=== PATIENT | female | born 1965 | race Caucasian/White ===

== ENCOUNTER → 2021-04-02 | Day surgery (SDC) | payer BC ==
[~2021-04-02] MED LIST: Lactated Ringers 1,000 ML IV SCH; Propofol 200 MG/20 ML SDV ONE
[2021-04-02 11:21] VITALS: BP 118/73; PULSE 74
--- NOTE | 2021-04-02 12:46 | OR ---
DATE OF OPERATION: 04/02/2021 PREOPERATIVE DIAGNOSIS: HEMATOCHEZIA. POSTOPERATIVE DIAGNOSIS: SIGMOID COLITIS. SURGEON: Patrick Fam MD PROCEDURE: FULL-LENGTH DIAGNOSTIC COLONOSCOPY WITH BIOPSIES X4. ANESTHESIA: MAC. COMPLICATIONS: None. SPECIMEN: Distal sigmoid biopsy x4. FINDINGS: 1. Full-length diagnostic colonoscopy. 2. Focal distal sigmoid colitis, likely infectious. RECOMMENDATIONS: Medical followup pending path report. INDICATIONS: The patient presented to my office for complaint of hematochezia. It has been about 5 years since her last colonoscopy. Her bleeding was improving. We elected to proceed with a diagnostic endoscopy. DESCRIPTION OF PROCEDURE: The patient was prepped and draped, placed in the left lateral decubitus position. A lubricated Olympus colonoscope was inserted and easily advanced to the cecum. Direct visualization of the ileocecal valve, appendiceal orifice, and the terminal ileum were accomplished without any issue. Upon withdrawal, the terminal ileum, cecum, ascending, and transverse colons were all completely benign throughout the left colon. The descending and proximal sigmoid areas were completely unremarkable. In the distal sigmoid colon from approximately 40 to 25 cm, the patient had diffuse and mild colitis, looked like it was resolving. There were no ulcerations or active bleeding sites. We did do 4 biopsies of phone representative areas. There were no polyps, masses, ulceration, or active bleeding sites. No signs of diverticula. The rectal vault was unremarkable. Retroflexion showed no perianal lesions. Air was suctioned. Scope removed without complication. MARK/OMAYRA /[id number]
== END ==
LOC: CC.SDS 09:02
PROVIDERS: ATTEND Family Medicine
DX: K92.2 Gastrointestinal hemorrhage, unspecified (principal); K52.9 Noninfective gastroenteritis and colitis, unspecified; K21.9 Gastro-esophageal reflux disease without esophagitis; I10 Essential (primary) hypertension; F32.89 Other specified depressive episodes; Z88.0 Allergy status to penicillin; Z79.899 Other long term (current) drug therapy; Z98.890 Other specified postprocedural states
CPT/HCPCS: 45380; J2704; J7120; 00811

== ENCOUNTER 2024-09-01 18:32 | Inpatient (IN) | payer BC ==
[2024-09-01] MEDS: fentaNYL 50 MCG/ML SDV IVPUSH ONE (19:04)
[2024-09-01] MEDS ORDERED: Ondansetron 4 MG/2 ML SDV IV PRN (21:55)
[2024-09-01] MEDS ORDERED: Sodium Chloride 0.9% 10 ML Syringe FLUSH PRN (21:55)
[2024-09-01] MEDS ORDERED: Naloxone 2 MG/2 ML Syringe IVPUSH PRN (21:55)
[2024-09-01] MEDS: fentaNYL 50 MCG/ML SDV IVPUSH PRN (22:42)
[2024-09-02] MEDS: Acetaminophen/oxyCODONE 325-5 MG Tab PO PRN (03:28)
[2024-09-02 07:43] LABS: BASOPHILS ABSOLUTE AUTO 0.04 10^3/uL (0.00-0.50); BASOPHILS PERCENT AUTO 0.4 % (0-1); HEMOGLOBIN 13.8 g/dL (12.0-16.0); IMMATURE GRAN ABSOLUTE AUTO 0.03 10^3/uL (0.00-0.49); IMMATURE GRAN PERCENT AUTO 0.3 % (0.0-4.9); LYMPHOCYTES ABSOLUTE AUTO 1.49 10^3/uL (0.60-5.00); LYMPHOCYTES PERCENT AUTO 14.8 % (24-44); MEAN CORPUSCULAR HEMOGLOBIN 29.7 pg (27.0-32.0); MEAN CORPUSCULAR HGB CONC 32.1 g/dL (32.0-36.0); MEAN CORPUSCULAR VOLUME 92.5 fL (83.0-97.0); MONOCYTES ABSOLUTE AUTO 1.04 10^3/uL (0.00-1.50); MONOCYTES PERCENT AUTO 10.3 % (0-10); NEUTROPHILS ABSOLUTE AUTO 7.36 x10^3/uL (1.80-8.00); NEUTROPHILS PERCENT AUTO 73.2 % (41-71); PLATELET COUNT,PLT 204 10^3/uL (150-400); RED BLOOD CELL COUNT 4.65 x10^6/uL (4.00-5.50); WHITE BLOOD CELL COUNT,WBC 10.1 10^3/uL (4.0-11.0)
[2024-09-02] MEDS: Lisinopril 10 MG Tab PO SCH (07:51)
[2024-09-02] MEDS: fentaNYL 50 MCG/ML SDV IVPUSH SCH (07:51)
[2024-09-02 08:07] LABS: ALBUMIN 3.6 g/dL (3.4-5.0); BILIRUBIN TOTAL 1.2 mg/dL (0.0-1.0); CALCIUM 9.5 mg/dL (8.4-10.1); CREATININE 1.1 mg/dL (0.6-1.0); EST CRCL DRUG DOSING (CG) 53.55 mL/min; POTASSIUM,K 4.2 mEq/L (3.5-5.0); PROTEIN TOTAL,TP 7.3 g/dL (6.4-8.2)
[2024-09-02] MEDS: Ondansetron 4 MG Tab.DIS PO PRN (10:42)
[2024-09-02] MEDS: Cyclobenzaprine 10 MG Tab PO PRN (17:32)
[2024-09-02] MEDS: Docusate Sodium 100 MG Cap PO SCH (19:29)
[2024-09-03] MEDS: Polyethylene Glycol 3350 Powder 17 GM Packet PO PRN (08:31)
[2024-09-04 08:00] LABS: CALCIUM 9.4 mg/dL (8.4-10.1); CREATININE 1.2 mg/dL (0.6-1.0); EST CRCL DRUG DOSING (CG) 49.09 mL/min; POTASSIUM,K 4.7 mEq/L (3.5-5.0)
[2024-09-04 08:11] VITALS: BP 113/72
[2024-09-04 08:12] LABS: BASOPHILS ABSOLUTE AUTO 0.04 10^3/uL (0.00-0.50); BASOPHILS PERCENT AUTO 0.5 % (0-1); EOSINOPHILS ABSOLUTE AUTO 0.37 10^3/uL (0.00-1.50); EOSINOPHILS PERCENT AUTO 4.2 % (0-6); HEMATOCRIT 40.5 % (37.0-47.0); HEMOGLOBIN 12.9 g/dL (12.0-16.0); IMMATURE GRAN ABSOLUTE AUTO 0.03 10^3/uL (0.00-0.49); IMMATURE GRAN PERCENT AUTO 0.3 % (0.0-4.9); LYMPHOCYTES ABSOLUTE AUTO 1.95 10^3/uL (0.60-5.00); LYMPHOCYTES PERCENT AUTO 22.1 % (24-44); MEAN CORPUSCULAR HEMOGLOBIN 29.9 pg (27.0-32.0); MEAN CORPUSCULAR HGB CONC 31.9 g/dL (32.0-36.0); MEAN CORPUSCULAR VOLUME 93.8 fL (83.0-97.0); MONOCYTES ABSOLUTE AUTO 1.06 10^3/uL (0.00-1.50); NEUTROPHILS ABSOLUTE AUTO 5.38 x10^3/uL (1.80-8.00); NEUTROPHILS PERCENT AUTO 60.9 % (41-71); PLATELET COUNT,PLT 158 10^3/uL (150-400); RED BLOOD CELL COUNT 4.32 x10^6/uL (4.00-5.50); WHITE BLOOD CELL COUNT,WBC 8.8 10^3/uL (4.0-11.0)
[2024-09-04] MEDS: Acetaminophen 325 MG Tab PO PRN (08:39)
[2024-09-04 10:18] VITALS: PULSE 98
[2024-09-04] MEDS: Bisacodyl 10 MG Supp RECTAL PRN (12:49)
== END 2024-09-04 15:15 | disposition home or self-care (01) | DRG 347 ==
LOC: CC.ED 18:32 → CC.MS 21:20 → UNDOADMIN 21:20 → CC.MS 21:34
PROVIDERS: ADMIT Physician Assistant Medical; ATTEND Nurse Practitioner Family
DX: S32.10XA Unspecified fracture of sacrum, initial encounter for closed fracture (principal); S32.592A Other specified fracture of left pubis, initial encounter for closed fracture; S32.512A Fracture of superior rim of left pubis, initial encounter for closed fracture; I10 Essential (primary) hypertension; F32.A Depression, unspecified; W01.0XXA Fall on same level from slipping, tripping and stumbling without subsequent striking against object, initial encounter; K59.00 Constipation, unspecified; Y93.89 Activity, other specified; Z88.0 Allergy status to penicillin; Z79.1 Long term (current) use of non-steroidal anti-inflammatories (NSAID); Z79.899 Other long term (current) drug therapy; Y92.59 Other trade areas as the place of occurrence of the external cause
CPT/HCPCS: 36415; 72192; 80048; 80053; 85025; 96374; 96375; 97116-GP; 97161-GP; 97530-GP; 99223; 99232; 99233; 99238; 99285-25; A9270-GY; J3010; J3360